=== PATIENT | male | born 1940 | race Caucasian/White ===

== ENCOUNTER → 2019-04-24 | Outpatient (CLI) | payer MEDICARE, OTHER ==
[2015-11-13 00:58] VITALS: BP 140/92
[~2019-04-24] MED LIST: AGGRENOX 25 MG-1 CER PO; AMBIEN10 MG PO; AMLOPIDINE PO; ATORVASTATIN CA20 MG PO; BYSTOLIC10 MG PO; CIALIS5 MG PO; COENZYME Q-10100 M1 PO; DIOVAN320 MG PO; GLUCOTROL XL2.5 MG PO; LEADER NATUR1000 MCG PO; NITROGLYCERIN0.4 M1 SL; OMEPRAZOLE20 MG PO; VIBRAMYCIN100 MG PO; ZOFRAN 8MG8 MG PO; ZYLOPRIM 300MG300 MG PO
== END ==
LOC: LAB 09:33 → RAD 09:33
DX: M25.571 Pain in right ankle and joints of right foot (principal); Z98.890 Other specified postprocedural states

== ENCOUNTER → 2019-05-09 | Outpatient (CLI) | payer MEDICARE, OTHER ==
[2015-11-13 00:58] VITALS: BP 140/92
[2019-05-09 15:52] LABS: EOS # 0.2 (0.04-0.40); EOS % 3.3 % (0.0-4.0); HEMATOCRIT 39.8 % (42.0-52.0); HEMOGLOBIN 13.2 g/dL (13.5-18.0); LYMPH# 1.2 (1.50-4.00); MEAN CELL VOLUME 102 fl (78-100); MEAN CORPUSCULAR HEMOGLOBIN 34 pg (27-31); MEAN CORPUSCULAR HGB CONC 33 g/dL (33-37); MEAN PLATELET VOLUME 9.3 fl (7.4-10.4); MONO # 0.6 (0.20-0.80); NEU # 4.8 (1.40-6.50); PLATELET COUNT 218 K/mm3 (130-400); RED BLOOD COUNT 3.91 M/mm3 (4.20-5.60); RED CELL DISTRIBUTION WIDTH 13.9 % (11.5-14.5); WHITE BLOOD COUNT 6.9 K/mm3 (4.8-10.8)
[2019-05-09 15:59] LABS: ALBUMIN 4.2 g/dL (3.4-4.8); SODIUM 141 mmol/L (136-145)
[2019-05-09 16:00] LABS: CALCIUM 9.8 mg/dL (8.3-10.5)
[2019-05-09 16:02] LABS: GLUCOSE 135 mg/dL (75-110); TOTAL PROTEIN 8.4 g/dL (6.2-8.1)
[2019-05-09 16:03] LABS: CARBON DIOXIDE 25 mmol/L (23-31)
[2019-05-09 16:04] LABS: TOTAL BILIRUBIN 0.5 mg/dL (0.2-1.2)
[2019-05-09 16:07] LABS: AST-SGOT 13 U/L (5-34)
[2019-05-09 16:09] LABS: ALT/SGPT < 6 U/L (0-55)
[2019-05-09 17:00] LABS: ERYTHROCYTE SEDIMENTATION RATE 15 mm/hr (0-20)
[2019-05-12 21:39] LABS: TESTOSTERONE 216 ng/dL (221-716)
== END ==
LOC: LAB 15:28
PROVIDERS: Internal Medicine
DX: I10 Essential (primary) hypertension (principal); E78.2 Mixed hyperlipidemia; R73.02 Impaired glucose tolerance (oral); G20 Parkinson's disease; N52.9 Male erectile dysfunction, unspecified; R20.2 Paresthesia of skin

== ENCOUNTER 2019-06-03 09:34 | Emergency (ER) | payer MEDICARE, OTHER ==
[~2019-06-03] VITALS: Ht 193 cm; Wt 94.9 kg
[~2019-06-03 09:34] MED LIST changes: -OMEPRAZOLE20 MG PO; +PRILOSEC 20MG20 MG PO
[2019-06-03 10:19] LABS: EOS # 0.3 (0.04-0.40); EOS % 3.9 % (0.0-4.0); HEMATOCRIT 38.6 % (42.0-52.0); HEMOGLOBIN 12.8 g/dL (13.5-18.0); MEAN CELL VOLUME 102 fl (78-100); MEAN CORPUSCULAR HEMOGLOBIN 34 pg (27-31); MEAN CORPUSCULAR HGB CONC 33 g/dL (33-37); MEAN PLATELET VOLUME 9.8 fl (7.4-10.4); MONO # 0.7 (0.20-0.80); NEU # 5.3 (1.40-6.50); PLATELET COUNT 188 K/mm3 (130-400); RED CELL DISTRIBUTION WIDTH 13.7 % (11.5-14.5); WHITE BLOOD COUNT 7.3 K/mm3 (4.8-10.8)
[2019-06-03] MEDS ORDERED: METOPROLOL SUCC50 M1 PO (10:26)
[2019-06-03] MEDS ORDERED: FLOMAX0.4 MG PO (10:26)
[2019-06-03] MEDS ORDERED: CARBIDOPA/LEVODOPA PO (10:27)
[2019-06-03] MEDS ORDERED: REMERON15 MG PO (10:29)
[2019-06-03 10:31] LABS: SODIUM 138 mmol/L (136-145)
[2019-06-03 10:32] LABS: ALBUMIN 3.9 g/dL (3.4-4.8)
[2019-06-03] MEDS ORDERED: VITAMIN B12 1541 TAB PO (10:32)
[2019-06-03 10:33] LABS: CALCIUM 9.4 mg/dL (8.3-10.5)
[2019-06-03 10:34] LABS: TOTAL PROTEIN 7.3 g/dL (6.2-8.1)
[2019-06-03 10:35] LABS: CARBON DIOXIDE 24 mmol/L (23-31); GLUCOSE 134 mg/dL (75-110)
[2019-06-03 10:36] LABS: TOTAL BILIRUBIN 0.8 mg/dL (0.2-1.2)
[2019-06-03 10:39] LABS: AST-SGOT 11 U/L (5-34)
[2019-06-03 10:43] LABS: ALT/SGPT < 6 U/L (0-55)
[2019-06-03 10:48] LABS: TROPONIN-I < 0.03 ng/mL (<0.030)
[2019-06-03 12:00] LABS: URINE APPEARANCE CLEAR; URINE BILIRUBIN NEGATIVE (NEGATIVE); URINE BLOOD NEGATIVE (NEGATIVE); URINE COLOR YELLOW; URINE GLUCOSE NEGATIVE (NEGATIVE); URINE KETONE NEGATIVE (NEGATIVE); URINE LEUKOCYTE ESTERASE NEGATIVE (NEGATIVE); URINE MUCUS PRESENT (NOT PRESENT); URINE NITRATE NEGATIVE (NEGATIVE); URINE PROTEIN(semi-quant) NEGATIVE (NEGATIVE); URINE UROBILINOGEN NORMAL (NORMAL); URINE WBC 0-1 /hpf (0-3)
[2019-06-03 13:11] VITALS: BP 142/79
== END 2019-06-03 13:12 | disposition home or self-care (01) ==
LOC: ED 09:34
PROVIDERS: Nurse Practitioner Primary Care
DX: R07.9 Chest pain, unspecified (principal); E11.22 Type 2 diabetes mellitus with diabetic chronic kidney disease; I12.9 Hypertensive chronic kidney disease with stage 1 through stage 4 chronic kidney disease, or unspecified chronic kidney disease; N18.9 Chronic kidney disease, unspecified; G20 Parkinson's disease; G30.9 Alzheimer's disease, unspecified; F02.80 Dementia in other diseases classified elsewhere, unspecified severity, without behavioral disturbance, psychotic disturbance, mood disturbance, and anxiety; Z79.84 Long term (current) use of oral hypoglycemic drugs; Z79.82 Long term (current) use of aspirin

== ENCOUNTER 2019-06-18 13:00 | Outpatient (RCR) | payer MEDICARE, OTHER ==
[~2019-06-18 13:00] MED LIST changes: +CARBIDOPA/LEVODOPA PO; +FLOMAX0.4 MG PO; +METOPROLOL SUCC50 M1 PO; +REMERON15 MG PO; +VITAMIN B12 1541 TAB PO
== END 2019-06-18 13:30 | disposition still patient (30) ==
LOC: PT 13:00
DX: G31.83 Neurocognitive disorder with Lewy bodies (principal); M25.571 Pain in right ankle and joints of right foot

== ENCOUNTER → 2019-06-30 | Outpatient (CLI) | payer MEDICARE, OTHER ==
[2019-06-03 13:11] VITALS: BP 142/79
== END ==
LOC: CARDREHAB 17:01
DX: G47.10 Hypersomnia, unspecified (principal); G47.33 Obstructive sleep apnea (adult) (pediatric)
CPT/HCPCS: G0399

== ENCOUNTER 2019-08-28 08:51 | Emergency (ER) | payer MEDICARE, OTHER ==
[~2019-08-28] VITALS: Wt 88.6 kg
[2019-08-28] MEDS ORDERED: AMLODIPINE BESYL5 MG PO (09:06)
[2019-08-28] MEDS ORDERED: QUETIAPINE FUMA25 M3 PO (09:06)
[2019-08-28] MEDS ORDERED: AMBIEN5 M1 PO (09:07)
[2019-08-28 09:18] LABS: EOS # 0.2 (0.04-0.40); EOS % 2.8 % (0.0-4.0); HEMATOCRIT 34.8 % (42.0-52.0); HEMOGLOBIN 11.3 g/dL (13.5-18.0); LYMPH# 1.1 (1.50-4.00); MEAN CELL VOLUME 104 fl (78-100); MEAN CORPUSCULAR HEMOGLOBIN 34 pg (27-31); MEAN CORPUSCULAR HGB CONC 33 g/dL (33-37); MEAN PLATELET VOLUME 8.8 fl (7.4-10.4); MONO # 0.6 (0.20-0.80); NEU # 5.3 (1.40-6.50); PLATELET COUNT 245 K/mm3 (130-400); RED BLOOD COUNT 3.36 M/mm3 (4.20-5.60); RED CELL DISTRIBUTION WIDTH 13.9 % (11.5-14.5); WHITE BLOOD COUNT 7.2 K/mm3 (4.8-10.8)
[2019-08-28 09:19] LABS: ALBUMIN 3.8 g/dL (3.4-4.8); POTASSIUM 3.8 mmol/L (3.5-5.1)
[2019-08-28 09:21] LABS: CALCIUM 8.8 mg/dL (8.3-10.5)
[2019-08-28 09:22] LABS: TOTAL PROTEIN 7.6 g/dL (6.2-8.1)
[2019-08-28 09:24] LABS: TOTAL BILIRUBIN 0.7 mg/dL (0.2-1.2)
[2019-08-28] MEDS ORDERED: LASIX20 M1 PO (10:09)
[2019-08-28 10:40] VITALS: BP 148/66
== END 2019-08-28 10:32 | disposition home or self-care (01) ==
LOC: ED 08:51
PROVIDERS: Nurse Practitioner Primary Care
DX: R60.0 Localized edema (principal); I11.0 Hypertensive heart disease with heart failure; I50.9 Heart failure, unspecified; G31.83 Neurocognitive disorder with Lewy bodies; F02.80 Dementia in other diseases classified elsewhere, unspecified severity, without behavioral disturbance, psychotic disturbance, mood disturbance, and anxiety; Z79.82 Long term (current) use of aspirin

== ENCOUNTER 2019-10-31 10:37 | Emergency (ER) | payer MEDICARE, OTHER ==
[~2019-10-31 10:37] MED LIST changes: +AMBIEN5 M1 PO; +AMLODIPINE BESYL5 MG PO; +LASIX20 M1 PO; +QUETIAPINE FUMA25 M3 PO
[2019-10-31 11:41] LABS: EOS # 0.1 (0.04-0.40); EOS % 1.2 % (0.0-4.0); HEMATOCRIT 39.2 % (42.0-52.0); HEMOGLOBIN 12.7 g/dL (13.5-18.0); LYMPH# 1.1 (1.50-4.00); MEAN CELL VOLUME 102 fl (78-100); MEAN CORPUSCULAR HEMOGLOBIN 33 pg (27-31); MEAN CORPUSCULAR HGB CONC 32 g/dL (33-37); MEAN PLATELET VOLUME 8.9 fl (7.4-10.4); MONO # 0.8 (0.20-0.80); NEU # 7.2 (1.40-6.50); PLATELET COUNT 212 K/mm3 (130-400); RED BLOOD COUNT 3.84 M/mm3 (4.20-5.60); RED CELL DISTRIBUTION WIDTH 13.1 % (11.5-14.5); WHITE BLOOD COUNT 9.2 K/mm3 (4.8-10.8)
[2019-10-31 11:47] LABS: ALBUMIN 3.8 g/dL (3.4-4.8); POTASSIUM 3.8 mmol/L (3.5-5.1); SODIUM 139 mmol/L (136-145)
[2019-10-31 11:48] LABS: CALCIUM 9.2 mg/dL (8.3-10.5)
[2019-10-31 11:49] LABS: GLUCOSE 173 mg/dL (75-110); TOTAL PROTEIN 7.6 g/dL (6.2-8.1)
[2019-10-31 11:50] LABS: CARBON DIOXIDE 27 mmol/L (23-31)
[2019-10-31 11:51] LABS: TOTAL BILIRUBIN 0.7 mg/dL (0.2-1.2)
[2019-10-31 11:55] LABS: AST-SGOT 14 U/L (5-34)
[2019-10-31 11:56] LABS: ALT/SGPT 7 U/L (0-55)
[2019-10-31 12:03] LABS: TROPONIN-I < 0.03 ng/mL (<0.030)
[2019-10-31] MEDS ORDERED: FLOMAX0.4 MG PO (12:57)
[2019-10-31] MEDS ORDERED: DONEPEZIL HCL10 MG PO (12:58)
[2019-10-31] MEDS ORDERED: ESCITALOPRAM5 MG PO (12:58)
[2019-10-31] MEDS ORDERED: ZOLPIDEM TART10 MG PO (12:59)
[2019-10-31] MEDS ORDERED: ATORVASTATIN CA40 MG PO (13:01)
[2019-10-31] MEDS ORDERED: ALLOPURINOL300 M1 PO (13:01)
[2019-10-31 13:32] LABS: URINE APPEARANCE CLEAR; URINE COLOR YELLOW; URINE GLUCOSE NEGATIVE (NEGATIVE); URINE KETONE NEGATIVE (NEGATIVE); URINE PROTEIN(semi-quant) 1+ mg/dL (NEGATIVE)
[2019-10-31 13:33] LABS: URINE BILIRUBIN NEGATIVE (NEGATIVE); URINE BLOOD NEGATIVE (NEGATIVE); URINE LEUKOCYTE ESTERASE NEGATIVE (NEGATIVE); URINE MUCUS PRESENT (NOT PRESENT); URINE NITRATE NEGATIVE (NEGATIVE); URINE UROBILINOGEN NORMAL (NORMAL)
[2019-10-31 14:20] VITALS: BP 167/74
== END 2019-10-31 14:42 | disposition home or self-care (01) ==
LOC: ED 10:37
PROVIDERS: Nurse Practitioner Family
DX: R41.82 Altered mental status, unspecified (principal); E11.9 Type 2 diabetes mellitus without complications; I10 Essential (primary) hypertension; G30.9 Alzheimer's disease, unspecified; F02.80 Dementia in other diseases classified elsewhere, unspecified severity, without behavioral disturbance, psychotic disturbance, mood disturbance, and anxiety; Z86.73 Personal history of transient ischemic attack (TIA), and cerebral infarction without residual deficits

== ENCOUNTER 2019-11-21 11:52 | Emergency (ER) | payer MEDICARE, OTHER ==
[~2019-11-21] VITALS: Ht 193 cm; Wt 89.5 kg
[~2019-11-21 11:52] MED LIST changes: +ALLOPURINOL300 M1 PO; +ATORVASTATIN CA40 MG PO; +DONEPEZIL HCL10 MG PO; +ESCITALOPRAM5 MG PO; +ZOLPIDEM TART10 MG PO
[2019-11-21 12:55] LABS: EOS # 0.2 (0.04-0.40); EOS % 2.1 % (0.0-4.0); HEMATOCRIT 39.5 % (42.0-52.0); HEMOGLOBIN 13.1 g/dL (13.5-18.0); LYMPH# 1.5 (1.50-4.00); MEAN CELL VOLUME 100 fl (78-100); MEAN CORPUSCULAR HEMOGLOBIN 33 pg (27-31); MEAN CORPUSCULAR HGB CONC 33 g/dL (33-37); MEAN PLATELET VOLUME 8.9 fl (7.4-10.4); MONO # 0.7 (0.20-0.80); NEU # 5.1 (1.40-6.50); PLATELET COUNT 205 K/mm3 (130-400); RED BLOOD COUNT 3.94 M/mm3 (4.20-5.60); WHITE BLOOD COUNT 7.5 K/mm3 (4.8-10.8)
[2019-11-21 13:07] LABS: ALBUMIN 3.9 g/dL (3.4-4.8)
[2019-11-21 13:08] LABS: POTASSIUM 4.2 mmol/L (3.5-5.1)
[2019-11-21 13:09] LABS: CALCIUM 9.2 mg/dL (8.3-10.5)
[2019-11-21 13:10] LABS: TOTAL PROTEIN 7.5 g/dL (6.2-8.1)
[2019-11-21 13:12] LABS: TOTAL BILIRUBIN 0.6 mg/dL (0.2-1.2)
[2019-11-21 13:22] LABS: TROPONIN-I 0.03 ng/mL (<0.030)
[2019-11-21 13:23] LABS: PH-URINE 8.5 (5.0 - 8.0); URINE APPEARANCE CLEAR; URINE BILIRUBIN NEGATIVE (NEGATIVE); URINE BLOOD NEGATIVE (NEGATIVE); URINE COLOR YELLOW; URINE GLUCOSE NEGATIVE (NEGATIVE); URINE KETONE NEGATIVE (NEGATIVE); URINE LEUKOCYTE ESTERASE NEGATIVE (NEGATIVE); URINE NITRATE NEGATIVE (NEGATIVE); URINE PROTEIN(semi-quant) NEGATIVE (NEGATIVE); URINE UROBILINOGEN NORMAL (NORMAL); URINE WBC 0-1 /hpf (0-3)
[2019-11-21] MEDS ORDERED: ESCITALOPRAM5 MG PO (13:58)
[2019-11-21] MEDS ORDERED: AGGRENOX 25 MG-1 CER PO (13:59)
[2019-11-21 15:03] VITALS: BP 131/90
== END 2019-11-21 15:00 | disposition home or self-care (01) ==
LOC: ED 11:52
PROVIDERS: Nurse Practitioner
DX: K21.9 Gastro-esophageal reflux disease without esophagitis (principal); K30 Functional dyspepsia; Z79.82 Long term (current) use of aspirin

== ENCOUNTER → 2019-12-12 | Outpatient (CLI) | payer MEDICARE, OTHER ==
[2019-11-21 15:03] VITALS: BP 131/90
== END ==
LOC: AMSURD 08:35
DX: I48.91 Unspecified atrial fibrillation (principal)

== ENCOUNTER 2020-02-01 05:48 | Emergency (ER) | payer MEDICARE, OTHER ==
[~2020-02-01] VITALS: Ht 200.7 cm; Wt 79.5 kg
[2020-02-01] MEDS ORDERED: REVATIO20 MG PO (06:00)
[2020-02-01] MEDS ORDERED: NORCO 325 MG-51 TA1 PO (09:37)
[2020-02-01 09:52] VITALS: BP 112/54
== END 2020-02-01 09:54 | disposition home or self-care (01) ==
LOC: ED 05:48
DX: M54.5 Low back pain (principal); I25.10 Atherosclerotic heart disease of native coronary artery without angina pectoris; I10 Essential (primary) hypertension; G20 Parkinson's disease; M10.9 Gout, unspecified; Z95.5 Presence of coronary angioplasty implant and graft; Z79.82 Long term (current) use of aspirin; W06.XXXA Fall from bed, initial encounter; Y92.009 Unspecified place in unspecified non-institutional (private) residence as the place of occurrence of the external cause

== ENCOUNTER 2020-02-09 10:48 | Emergency (ER) | payer MEDICARE, OTHER ==
[~2020-02-09] VITALS: Ht 203.2 cm; Wt 83.6 kg
[~2020-02-09 10:48] MED LIST changes: +NORCO 325 MG-51 TA1 PO; +REVATIO20 MG PO
[2020-02-09] MEDS ORDERED: TYLENOL EXTRA500 M2 PO (11:39)
[2020-02-09] MEDS ORDERED: MIRTAZAPINE15 M1 PO (11:40)
[2020-02-09 11:43] LABS: EOS # 0.2 (0.04-0.40); EOS % 2.9 % (0.0-4.0); HEMATOCRIT 35.4 % (42.0-52.0); HEMOGLOBIN 11.7 g/dL (13.5-18.0); LYMPH# 1.2 (1.50-4.00); MEAN CELL VOLUME 98 fl (78-100); MEAN CORPUSCULAR HEMOGLOBIN 33 pg (27-31); MEAN CORPUSCULAR HGB CONC 33 g/dL (33-37); MEAN PLATELET VOLUME 9.3 fl (7.4-10.4); MONO # 0.5 (0.20-0.80); NEU # 4.6 (1.40-6.50); PLATELET COUNT 193 K/mm3 (130-400); RED CELL DISTRIBUTION WIDTH 14.7 % (11.5-14.5); WHITE BLOOD COUNT 6.5 K/mm3 (4.8-10.8)
[2020-02-09 11:56] LABS: ALBUMIN 3.8 g/dL (3.4-4.8); POTASSIUM 3.7 mmol/L (3.5-5.1); SODIUM 139 mmol/L (136-145)
[2020-02-09 11:58] LABS: CALCIUM 8.8 mg/dL (8.3-10.5)
[2020-02-09 11:59] LABS: GLUCOSE 106 mg/dL (75-110); TOTAL PROTEIN 7.6 g/dL (6.2-8.1)
[2020-02-09 12:00] LABS: CARBON DIOXIDE 23 mmol/L (23-31)
[2020-02-09 12:01] LABS: TOTAL BILIRUBIN 0.8 mg/dL (0.2-1.2)
[2020-02-09 12:04] LABS: AST-SGOT 13 U/L (5-34)
[2020-02-09 12:18] LABS: ALT/SGPT < 6 U/L (0-55); TROPONIN-I < 0.03 ng/mL (<0.030)
[2020-02-09 14:35] VITALS: BP 132/87
== END 2020-02-09 14:47 | disposition home or self-care (01) ==
LOC: ED 10:48
PROVIDERS: Nurse Practitioner Primary Care
DX: K21.9 Gastro-esophageal reflux disease without esophagitis (principal); I25.10 Atherosclerotic heart disease of native coronary artery without angina pectoris; I25.2 Old myocardial infarction; I10 Essential (primary) hypertension; G20 Parkinson's disease; F02.80 Dementia in other diseases classified elsewhere, unspecified severity, without behavioral disturbance, psychotic disturbance, mood disturbance, and anxiety; Z79.82 Long term (current) use of aspirin; Z86.73 Personal history of transient ischemic attack (TIA), and cerebral infarction without residual deficits; Z95.5 Presence of coronary angioplasty implant and graft; Z95.818 Presence of other cardiac implants and grafts

== ENCOUNTER → 2020-03-22 | Outpatient (CLI) | payer MEDICARE, OTHER ==
[~2020-03-22] MED LIST changes: +MIRTAZAPINE15 M1 PO; +TYLENOL EXTRA500 M2 PO
[2020-03-22 11:32] LABS: EOS # 0.3 (0.04-0.40); EOS % 3.4 % (0.0-4.0); HEMATOCRIT 39.9 % (42.0-52.0); HEMOGLOBIN 13.1 g/dL (13.5-18.0); LYMPH# 1.4 (1.50-4.00); MEAN CELL VOLUME 102 fl (78-100); MEAN CORPUSCULAR HEMOGLOBIN 33 pg (27-31); MEAN CORPUSCULAR HGB CONC 33 g/dL (33-37); MONO # 0.6 (0.20-0.80); NEU # 6.3 (1.40-6.50); PLATELET COUNT 209 K/mm3 (130-400); RED BLOOD COUNT 3.92 M/mm3 (4.20-5.60); RED CELL DISTRIBUTION WIDTH 14.7 % (11.5-14.5); WHITE BLOOD COUNT 8.6 K/mm3 (4.8-10.8)
[2020-03-22 11:38] LABS: ALBUMIN 3.9 g/dL (3.4-4.8); POTASSIUM 4.2 mmol/L (3.5-5.1); SODIUM 142 mmol/L (136-145)
[2020-03-22 11:40] LABS: CALCIUM 9.2 mg/dL (8.3-10.5)
[2020-03-22 11:41] LABS: GLUCOSE 124 mg/dL (75-110); TOTAL PROTEIN 7.6 g/dL (6.2-8.1)
[2020-03-22 11:42] LABS: CARBON DIOXIDE 27 mmol/L (23-31)
[2020-03-22 11:43] LABS: TOTAL BILIRUBIN 0.5 mg/dL (0.2-1.2)
[2020-03-22 11:46] LABS: AST-SGOT 14 U/L (5-34)
[2020-03-22 11:52] LABS: ALT/SGPT < 6 U/L (0-55)
== END ==
LOC: LAB 11:16
PROVIDERS: Internal Medicine
DX: I10 Essential (primary) hypertension (principal); G20 Parkinson's disease; R73.02 Impaired glucose tolerance (oral)

== ENCOUNTER → 2020-04-16 | Outpatient (CLI) | payer MEDICARE, OTHER ==
[2020-04-16 09:54] LABS: HEMATOCRIT 38.2 % (42.0-52.0); HEMOGLOBIN 12.5 g/dL (13.5-18.0); MEAN PLATELET VOLUME 9.1 fl (7.4-10.4); RED BLOOD COUNT 3.78 M/mm3 (4.20-5.60); RED CELL DISTRIBUTION WIDTH 14.9 % (11.5-14.5); WHITE BLOOD COUNT 7.6 K/mm3 (4.8-10.8)
[2020-04-16 10:07] LABS: POTASSIUM 3.6 mmol/L (3.5-5.1); SODIUM 141 mmol/L (136-145)
[2020-04-16 10:08] LABS: CALCIUM 9.2 mg/dL (8.3-10.5); GLUCOSE 121 mg/dL (75-110)
[2020-04-16 10:10] LABS: CARBON DIOXIDE 27 mmol/L (23-31); D-DIMER 1.88 mg/L FEU (0.15-0.50)
[2020-04-16 10:29] LABS: TROPONIN-I < 0.03 ng/mL (<0.030)
== END ==
LOC: RAD 09:38
PROVIDERS: Internal Medicine Interventional Cardiology
DX: R07.89 Other chest pain (principal)

== ENCOUNTER 2020-04-21 13:45 | Outpatient (RCR) | payer MEDICARE, OTHER | END 2020-04-21 14:30 | disposition still patient (30) | LOC: PT 13:45 | DX: G20 Parkinson's disease (principal) ==

== ENCOUNTER → 2020-06-14 | Outpatient (CLI) | payer MEDICARE, OTHER ==
[2020-06-14 16:08] LABS: EOS # 0.2 (0.04-0.40); EOS % 3.2 % (0.0-4.0); HEMATOCRIT 37.1 % (42.0-52.0); HEMOGLOBIN 11.9 g/dL (13.5-18.0); LYMPH# 1.5 (1.50-4.00); MEAN CELL VOLUME 104 fl (78-100); MEAN CORPUSCULAR HEMOGLOBIN 33 pg (27-31); MEAN CORPUSCULAR HGB CONC 32 g/dL (33-37); MEAN PLATELET VOLUME 9.2 fl (7.4-10.4); MONO # 0.7 (0.20-0.80); NEU # 4.7 (1.40-6.50); PLATELET COUNT 197 K/mm3 (130-400); RED BLOOD COUNT 3.57 M/mm3 (4.20-5.60); RED CELL DISTRIBUTION WIDTH 14.3 % (11.5-14.5); WHITE BLOOD COUNT 7.2 K/mm3 (4.8-10.8)
[2020-06-14 16:16] LABS: POTASSIUM 3.7 mmol/L (3.5-5.1)
[2020-06-14 16:17] LABS: CALCIUM 8.8 mg/dL (8.3-10.5)
[2020-06-14 16:19] LABS: TOTAL PROTEIN 7.7 g/dL (6.2-8.1)
[2020-06-14 16:20] LABS: TOTAL BILIRUBIN 0.4 mg/dL (0.2-1.2)
== END ==
LOC: LAB 15:40
PROVIDERS: Internal Medicine
DX: E11.9 Type 2 diabetes mellitus without complications (principal); M10.9 Gout, unspecified

== ENCOUNTER 2020-06-15 10:00 | Outpatient (RCR) | payer MEDICARE, OTHER ==
[2020-07-26] MEDS ORDERED: LASIX20 M1 PO (14:12)
== END 2020-07-26 | disposition home or self-care (01) ==
LOC: PT
DX: G20 Parkinson's disease (principal)

== ENCOUNTER 2020-07-26 11:39 | Emergency (ER) | payer MEDICARE, OTHER ==
[~2020-07-26] VITALS: Wt 85.5 kg
[2020-07-26 12:32] LABS: EOS # 0.2 (0.04-0.40); EOS % 2.8 % (0.0-4.0); HEMATOCRIT 35.8 % (42.0-52.0); HEMOGLOBIN 11.4 g/dL (13.5-18.0); MEAN CELL VOLUME 103 fl (78-100); MEAN CORPUSCULAR HEMOGLOBIN 33 pg (27-31); MEAN CORPUSCULAR HGB CONC 32 g/dL (33-37); MONO # 0.7 (0.20-0.80); NEU # 4.8 (1.40-6.50); PLATELET COUNT 184 K/mm3 (130-400); RED BLOOD COUNT 3.48 M/mm3 (4.20-5.60); RED CELL DISTRIBUTION WIDTH 13.6 % (11.5-14.5); WHITE BLOOD COUNT 6.7 K/mm3 (4.8-10.8)
[2020-07-26 12:46] LABS: ALBUMIN 3.6 g/dL (3.4-4.8)
[2020-07-26 12:47] LABS: POTASSIUM 3.5 mmol/L (3.5-5.1)
[2020-07-26 12:48] LABS: CALCIUM 8.6 mg/dL (8.3-10.5)
[2020-07-26 12:49] LABS: TOTAL PROTEIN 7.1 g/dL (6.2-8.1)
[2020-07-26 12:51] LABS: TOTAL BILIRUBIN 0.5 mg/dL (0.2-1.2)
[2020-07-26 13:35] LABS: ERYTHROCYTE SEDIMENTATION RATE 17 mm/hr (0-20)
[2020-07-26] MEDS ORDERED: LASIX20 M1 PO (14:12)
[2020-07-26 18:33] VITALS: BP 133/79
== END 2020-07-26 15:26 | disposition home or self-care (01) ==
LOC: ED 11:39
PROVIDERS: Physician Assistant
DX: E86.0 Dehydration (principal); I95.9 Hypotension, unspecified; E78.5 Hyperlipidemia, unspecified; G20 Parkinson's disease; Z88.2 Allergy status to sulfonamides; Z79.82 Long term (current) use of aspirin
CPT/HCPCS: J7030

== ENCOUNTER 2020-12-09 14:26 | Emergency (ER) | payer MEDICARE, OTHER ==
[2020-12-09] MEDS ORDERED: AMLODIPINE BESYL5 MG PO (14:36)
[2020-12-09] MEDS ORDERED: AMANTADINE100 M1 PO (14:36)
[2020-12-09] MEDS ORDERED: MIRTAZAPINE30 MG PO (14:36)
[2020-12-09 15:24] LABS: BASO # 0.03 (0.02-0.10); EOS # 0.18 (0.04-0.40); EOS % 3.3 % (0.0-4.0); HEMATOCRIT 37.6 % (42.0-52.0); HEMOGLOBIN 12.4 g/dL (13.5-18.0); LYMPH# 0.76 (1.50-4.00); MEAN CELL VOLUME 101 fl (78-100); MEAN CORPUSCULAR HEMOGLOBIN 33 pg (27-31); MEAN CORPUSCULAR HGB CONC 33 g/dL (33-37); MEAN PLATELET VOLUME 9.5 fl (7.4-10.4); MONO # 0.45 (0.20-0.80); NEU # 3.96 (1.40-6.50); PLATELET COUNT 166 K/mm3 (130-400); RED BLOOD COUNT 3.71 M/mm3 (4.20-5.60); RED CELL DISTRIBUTION WIDTH 13.7 % (11.5-14.5); WHITE BLOOD COUNT 5.4 K/mm3 (4.8-10.8)
[2020-12-09 15:26] LABS: ALBUMIN 3.6 g/dL (3.4-4.8); POTASSIUM 4.3 mmol/L (3.5-5.1); SODIUM 140 mmol/L (136-145)
[2020-12-09 15:27] LABS: CALCIUM 8.7 mg/dL (8.3-10.5)
[2020-12-09 15:28] LABS: GLUCOSE 139 mg/dL (75-110)
[2020-12-09 15:29] LABS: TOTAL PROTEIN 7.2 g/dL (6.2-8.1)
[2020-12-09 15:30] LABS: CARBON DIOXIDE 24 mmol/L (23-31); TOTAL BILIRUBIN 0.6 mg/dL (0.2-1.2)
[2020-12-09 15:34] LABS: AST-SGOT 11 U/L (5-34)
[2020-12-09 15:41] LABS: ALT/SGPT < 6 U/L (0-55)
[2020-12-09 16:56] LABS: URINE COLOR YELLOW
[2020-12-09 16:57] LABS: URINE APPEARANCE HAZY; URINE BILIRUBIN 2+ (NEGATIVE); URINE BLOOD NEGATIVE (NEGATIVE); URINE GLUCOSE NEGATIVE (NEGATIVE); URINE KETONE NEGATIVE (NEGATIVE); URINE LEUKOCYTE ESTERASE TRACE (NEGATIVE); URINE NITRATE NEGATIVE (NEGATIVE); URINE PROTEIN(semi-quant) TRACE mg/dL (NEGATIVE); URINE UROBILINOGEN NORMAL (NORMAL)
[2020-12-09 16:58] LABS: URINE MUCUS PRESENT (NOT PRESENT)
[2020-12-09 18:18] VITALS: BP 103/90
== END 2020-12-09 18:18 | disposition home or self-care (01) ==
LOC: ED 14:26
PROVIDERS: Nurse Practitioner Family
DX: R10.31 Right lower quadrant pain (principal); M51.36 Other intervertebral disc degeneration, lumbar region; G20 Parkinson's disease; M79.606 Pain in leg, unspecified; E11.22 Type 2 diabetes mellitus with diabetic chronic kidney disease; N18.9 Chronic kidney disease, unspecified; G30.9 Alzheimer's disease, unspecified; E78.5 Hyperlipidemia, unspecified; Z95.0 Presence of cardiac pacemaker
CPT/HCPCS: J1885; J7030

== ENCOUNTER → 2020-12-13 | Outpatient (CLI) | payer MEDICARE, OTHER ==
[2020-12-09 18:18] VITALS: BP 103/90
[~2020-12-13] MED LIST changes: +AMANTADINE100 M1 PO; +ARICEPT10 M1 PO; +GOOD NEIGH1200 MG/15 PO; +MELATIN 3 MG-11 TAB PO; +MIDODRINE HCL2.5 MG PO; +MIRTAZAPINE30 MG PO; +REQUIP0.25 M1 PO; +SEROQUEL50 MG PO; +ZOLOFT25 M1 PO
[2020-12-13 17:09] LABS: URINE APPEARANCE HAZY; URINE BILIRUBIN NEGATIVE (NEGATIVE); URINE BLOOD TRACE (NEGATIVE); URINE COLOR DK YELLOW; URINE GLUCOSE NEGATIVE (NEGATIVE); URINE KETONE NEGATIVE (NEGATIVE); URINE LEUKOCYTE ESTERASE TRACE (NEGATIVE); URINE NITRATE NEGATIVE (NEGATIVE); URINE PROTEIN(semi-quant) TRACE mg/dL (NEGATIVE); URINE UROBILINOGEN NORMAL (NORMAL)
[2020-12-13 17:10] LABS: URINE MUCUS PRESENT (NOT PRESENT)
== END ==
LOC: LAB 16:26
PROVIDERS: Internal Medicine
DX: R10.84 Generalized abdominal pain (principal)

== ENCOUNTER 2021-02-16 21:30 | Emergency (ER) | payer MEDICARE, OTHER ==
[~2021-02-16 21:30] MED LIST changes: -ARICEPT10 M1 PO; -GOOD NEIGH1200 MG/15 PO; -MELATIN 3 MG-11 TAB PO; -MIDODRINE HCL2.5 MG PO; -REQUIP0.25 M1 PO; -SEROQUEL50 MG PO; -ZOLOFT25 M1 PO
[2021-02-16 21:34] VITALS: BP 124/79
[2021-02-16 22:33] LABS: BASO # 0.03 (0.02-0.10); EOS # 0.01 (0.04-0.40); EOS % 0.1 % (0.0-4.0); HEMATOCRIT 38.7 % (42.0-52.0); HEMOGLOBIN 12.7 g/dL (13.5-18.0); MEAN CELL VOLUME 101 fl (78-100); MEAN CORPUSCULAR HEMOGLOBIN 33 pg (27-31); MEAN CORPUSCULAR HGB CONC 33 g/dL (33-37); MEAN PLATELET VOLUME 9.9 fl (7.4-10.4); MONO # 0.73 (0.20-0.80); NEU # 7.11 (1.40-6.50); PLATELET COUNT 205 K/mm3 (130-400); RED BLOOD COUNT 3.83 M/mm3 (4.20-5.60); RED CELL DISTRIBUTION WIDTH 13.5 % (11.5-14.5); WHITE BLOOD COUNT 9.1 K/mm3 (4.8-10.8)
[2021-02-16 22:42] LABS: ALBUMIN 3.8 g/dL (3.4-4.8); POTASSIUM 3.9 mmol/L (3.5-5.1)
[2021-02-16 22:43] LABS: CALCIUM 9.7 mg/dL (8.3-10.5)
[2021-02-16 22:45] LABS: TOTAL PROTEIN 8.4 g/dL (6.2-8.1)
[2021-02-16 22:46] LABS: TOTAL BILIRUBIN 0.9 mg/dL (0.2-1.2)
[2021-02-16 23:38] LABS: URINE APPEARANCE HAZY; URINE COLOR AMBER; URINE GLUCOSE NEGATIVE (NEGATIVE); URINE PROTEIN(semi-quant) TRACE mg/dL (NEGATIVE)
[2021-02-16 23:39] LABS: URINE BILIRUBIN NEGATIVE (NEGATIVE); URINE BLOOD 50 ery/uL (NEGATIVE); URINE KETONE NEGATIVE (NEGATIVE); URINE LEUKOCYTE ESTERASE NEGATIVE (NEGATIVE); URINE MUCUS PRESENT (NOT PRESENT); URINE NITRATE NEGATIVE (NEGATIVE); URINE UROBILINOGEN NORMAL (NORMAL)
[2021-02-17] MEDS ORDERED: AMANTADINE100 M1 PO (01:14)
[2021-02-17] MEDS ORDERED: ARICEPT10 M1 PO (01:15)
[2021-02-17] MEDS ORDERED: MIDODRINE HCL2.5 MG PO (01:17)
[2021-02-17] MEDS ORDERED: MELATIN 3 MG-11 TAB PO (01:17)
[2021-02-17] MEDS ORDERED: GOOD NEIGH1200 MG/15 PO (01:19)
[2021-02-17] MEDS ORDERED: SEROQUEL50 MG PO (01:20)
[2021-02-17] MEDS ORDERED: REQUIP0.25 M1 PO (01:21)
[2021-02-17] MEDS ORDERED: ZOLOFT25 M1 PO (01:22)
== END 2021-02-17 00:04 | disposition other institution (70) ==
LOC: ED 21:30
PROVIDERS: Physician Assistant
DX: R41.82 Altered mental status, unspecified (principal); G20 Parkinson's disease; Z20.822 Contact with and (suspected) exposure to COVID-19; Z79.899 Other long term (current) drug therapy; Z95.818 Presence of other cardiac implants and grafts
CPT/HCPCS: J2543

== ENCOUNTER 2021-02-17 00:47 | Inpatient (IN) | payer MEDICARE, OTHER ==
[2021-02-17] VITALS (7 sets, daily range): BP systolic 136–168; BP diastolic 71–93
[~2021-02-17] VITALS: Ht 182.9 cm; Wt 71.6 kg
[2021-02-17] MEDS ORDERED: AMANTADINE100 M1 PO (01:14)
[2021-02-17] MEDS ORDERED: ARICEPT10 M1 PO (01:15)
[2021-02-17] MEDS ORDERED: MIDODRINE HCL2.5 MG PO (01:17)
[2021-02-17] MEDS ORDERED: MELATIN 3 MG-11 TAB PO (01:17)
[2021-02-17] MEDS ORDERED: GOOD NEIGH1200 MG/15 PO (01:19)
[2021-02-17] MEDS ORDERED: SEROQUEL50 MG PO (01:20)
[2021-02-17] MEDS ORDERED: REQUIP0.25 M1 PO (01:21)
[2021-02-17] MEDS ORDERED: ZOLOFT25 M1 PO (01:22)
--- NOTE | 2021-02-17 02:00 | NUR ---
Patient admitted from ED to room 204. From [facility]. Nursing staff reports patient is disoriented at baseline yet speaks clearly. Is unable answer questions appropriately. Upon admission, Alert and disoriented x3, non-verbal. VSS, on room air. Last BM 02/12/21. Admitted with SIRS, renal insuficiency, Parkinsons and dehydration. IV fluids infusing. Assisted x2 with HS cares. Resting in bed. Bed in lowest and locked position. Call light within reach.
--- NOTE | 2021-02-17 03:26 | NUR ---
IVF rate changed by provider to 500 ML/HR on current bag then next liter at 100 ML/HR.
--- NOTE | 2021-02-17 06:28 | NUR ---
No change in status. Remains non-verbal to staff. IVF infusing at 100 ML/HR. HR tachy 110's.
--- NOTE | 2021-02-17 07:00 | NUR ---
Report recieved from KOLBY Marion. Pt sleeping in bed. Tremors noted.
--- NOTE | 2021-02-17 07:07 | NUR ---
Report to Mackenzie MARTINEZ.
[2021-02-17 07:08] LABS: BASO # 0.01 (0.02-0.10); EOS # 0.01 (0.04-0.40); EOS % 0.1 % (0.0-4.0); HEMATOCRIT 36.4 % (42.0-52.0); HEMOGLOBIN 11.6 g/dL (13.5-18.0); MEAN CELL VOLUME 102 fl (78-100); MEAN CORPUSCULAR HEMOGLOBIN 33 pg (27-31); MEAN CORPUSCULAR HGB CONC 32 g/dL (33-37); MEAN PLATELET VOLUME 9.7 fl (7.4-10.4); MONO # 0.61 (0.20-0.80); NEU # 6.71 (1.40-6.50); PLATELET COUNT 181 K/mm3 (130-400); RED BLOOD COUNT 3.56 M/mm3 (4.20-5.60); RED CELL DISTRIBUTION WIDTH 13.6 % (11.5-14.5); WHITE BLOOD COUNT 8.6 K/mm3 (4.8-10.8)
[2021-02-17 07:14] LABS: POTASSIUM 3.8 mmol/L (3.5-5.1)
[2021-02-17 07:15] LABS: CALCIUM 8.9 mg/dL (8.3-10.5)
[2021-02-17 07:29] LABS: TROPONIN-I 0.04 ng/mL (<0.030)
--- NOTE | 2021-02-17 09:45 | NUR ---
Medication was crushed and put in applesauce pt will not swallow the medication, nurse and LEI MAKER tried to get the pt to respond but pt does not. Medication was taken out of the pts mouth, and mouth was swabbed out. Pt finally responded to a sternum rub and does open both eye. Pt tries to speak when asked to but can not seem to get any words out, then falls back asleep. Will continue to montior.
--- NOTE | 2021-02-17 11:30 | NUR ---
Talked with Dr. Dwaine Urrutia regarding pt. He agrees to hold all medications at this time, until the pt is more alert and responsive.
--- NOTE | 2021-02-17 13:30 | NUR ---
Spoke with pts son, Andrew to given him an update. He states that he is fine with our plan of care with fluids and keeping the pt comfortable for now and states that if he needs further work up that he is going with doing that as well. Will continue to keep him updated.
--- NOTE | 2021-02-17 14:04 | NUR ---
Pt repositioned in bed, IV to left wrist was taken out. 20G IV was placed to RT forearm earlier today. Pt responded to his name, but was unable to say anything at this time. Pt opened both eyes when I spoke his name for a second and then went back to sleep. Will continue to monitor.
--- NOTE | 2021-02-17 19:25 | NUR ---
Report received from Mackenzie MARTINEZ. Patient resting supine in bed. Drowsy, Opens eyes to verbal stimuli. Able to state his first name and trys to answer futher questions but unable to get words out. IVF infusing 1/2 NS at 100 ML/HR. Site to RFA patent. IV Zosyn started at this time to run at 25 ML/HR. Lungs CTA. TELE in place HR in 70's. Patient continues to have shakiness to upper ext. Mera cath patent to DD with urine now yellow in color. Staff in to turn and reposition Q 2 hours and PRN. Bed alarm on. Call light in reach.
--- NOTE | 2021-02-17 22:05 | NUR ---
Repositioned by MAP MOUNTER. Oral cares provided. Patient has poor oral condition. Teeth yellow with canker sores noted on inner lower mucosa. Old bruising (yellow/green) noted to L rib cage and bruising noted to R inner thigh. Pillow placed between legs. Trying to speak to staff and answer questions but words unintangible. Afebrile. Tylenol supp. 650 MG given for questionable pain.
[2021-02-18 02:15] VITALS: BP 165/74
--- NOTE | 2021-02-18 02:50 | NUR ---
IV Med johnston. IV site patent to RFA. Patient awake. States first name when asked but offers no further answers questions. Speech garbled. No signs of pain will not answer when asked. Samaria patent to DD. Clear yellow urine in bed.HR low 80's. Afebrile. Staff in to reposition with oral cares Q 2 hours. Bed alarm on. Call light in reach.
--- NOTE | 2021-02-18 05:21 | NUR ---
Repositioned by staff. Grimaces and moans out with repostioning. T. 99.6. Tylenol Supp 650 MG given per rectum at this time. Prior to moving in bed patient states "no" when asked if having pain. Has rested well.
[2021-02-18 05:58] VITALS: BP 172/84
--- NOTE | 2021-02-18 07:00 | NUR ---
Report recieved from KOLBY Marion. Pt sleeping in bed. Pt did open both eyes to his name, and then went back to sleep. Will continue to monitor.
--- NOTE | 2021-02-18 07:04 | NUR ---
Report to Mackenzie MARTINEZ.
[2021-02-18 08:25] LABS: BASO # 0.01 (0.02-0.10); EOS # 0.07 (0.04-0.40); HEMATOCRIT 35.7 % (42.0-52.0); HEMOGLOBIN 11.5 g/dL (13.5-18.0); LYMPH# 0.98 (1.50-4.00); MEAN CELL VOLUME 102 fl (78-100); MEAN CORPUSCULAR HEMOGLOBIN 33 pg (27-31); MEAN CORPUSCULAR HGB CONC 32 g/dL (33-37); MEAN PLATELET VOLUME 9.8 fl (7.4-10.4); MONO # 0.47 (0.20-0.80); NEU # 5.15 (1.40-6.50); PLATELET COUNT 163 K/mm3 (130-400); RED BLOOD COUNT 3.51 M/mm3 (4.20-5.60); RED CELL DISTRIBUTION WIDTH 13.5 % (11.5-14.5); WHITE BLOOD COUNT 6.7 K/mm3 (4.8-10.8)
[2021-02-18 08:33] LABS: ALBUMIN 3.2 g/dL (3.4-4.8); POTASSIUM 3.6 mmol/L (3.5-5.1)
[2021-02-18 08:34] LABS: CALCIUM 8.7 mg/dL (8.3-10.5)
[2021-02-18 08:35] LABS: TOTAL PROTEIN 7.2 g/dL (6.2-8.1)
[2021-02-18 08:37] LABS: TOTAL BILIRUBIN 1.2 mg/dL (0.2-1.2)
[2021-02-18 08:42] LABS: MAGNESIUM 1.83 mg/dL (1.60-2.60)
[2021-02-18 09:18] VITALS: BP 151/89
--- NOTE | 2021-02-18 10:38 | NUR ---
Received call from Glenis at [facility]. She reports that pt does not reside in their LTCF but that he was there for SNF stay. She reports that pt was supposed to be discharged and his last day of coverage was 02/17 due to lask of participation. Glenis reports that the plan was for Mr. Galloway to return to his home with his and 24H care. Glenis requested updates on pt's condition and plan of care when able. Per nursing, pt's son call earlier today and is on his way to [place] from out of town. Plan to discuss discharge plans with pt and family when able.
--- NOTE | 2021-02-18 13:00 | NUR ---
Pt responds to his name and was able to say he was in pain, and nods yes when asked if his left arm hurt. Nurse trialed pudding with the pt. Pt took a small bite and swallowed correctly however refused to take another bite stating that he did not want it. Pt asleep in bed when the nurse left room. Call light within reach, will continue to monitor.
[2021-02-18 13:55] VITALS: BP 161/102
[2021-02-18 17:23] VITALS: BP 161/100
--- NOTE | 2021-02-18 22:00 | NUR ---
This nurse and CHILD ATTENDANT provided dependent oral care. Patient unable to open mouth. Teeth brushed with soft toothbrush. Open sores, redness and yellow covering on gums, tongue and roof of mouth. Patient confirms pain in mouth.
[2021-02-18 22:02] VITALS: BP 162/89
--- NOTE | 2021-02-18 22:04 | NUR ---
Patient resting in bed. Alert and responding to questions. Patient able to answer "yes" or "no" to questions. No c/o pain or discomfort. Confirms he is not in pain by stating, "no" when asked. Bed in lowest and locked position. Call ligth within reach.
[2021-02-19] VITALS (7 sets, daily range): BP systolic 130–159; BP diastolic 74–100
--- NOTE | 2021-02-19 08:15 | NUR ---
Pt opens eyes to call of name otherwise lethargic. reponds to pain by withdraw and grimaces with repositioning. Remains NPO. IV of 1/2 NS at 100 mls/hr - iv site without redness or swelling. No meat blender to left hand and weak meat blender to right hand - pt does not follow commands to meat blender but overnight houseperson as reflex it appears. Tele shows RSR 90's-100's. PO meds on hold right now as ordered til pt awake and cognitive improved. Mera drains clear becki urine. BS active. Mouthcare completed with oral swab and mouthwash - poor dental health but pt allows tongue to be scrubbed (coated with yellow appearance and along gum line the same). Call light in reach and bed alarm on.
--- NOTE | 2021-02-19 10:21 | NUR ---
Morphine 2 mg SIVP given for discomfort after repositioning pt.
--- NOTE | 2021-02-19 11:45 | NUR ---
Pt opens eyes to call of name and appears to be more alert and bright eyed for short time. Family still here. Not agreeablet to mouth care at this time as clenches teeth. Continue to see small jerking movements at times. Tele continues. IV fluids continue to infuse without difficulty. Pt repositioned onto back for a time. left leg remains bent and pt continue to grimace with attempt to straighten or move it.
--- NOTE | 2021-02-19 12:37 | NUR ---
Dr. Christy in to visit with sister and son. Andrew, other pt's son, is DOPA. He and his mom (pt's ) are out of town at this time. Family report that also has dementia but does live at home.
--- NOTE | 2021-02-19 12:43 | NUR ---
Spoke w/ [facility], Devora, who had called for an update. Devora reported that pt fell on sunday and that she noticed that pt has become more contractured lately. States she thinks the last time the pt ate was around sunday. Unsure of last BM there. She also mentioned that pt does not allow mouthcare there at the home very often but they attempt. Dr. Christy discussed getting an MRI with the family if that is something they wanted to do.
--- NOTE | 2021-02-19 13:00 | NUR ---
Son and pt's sister leave at this time. Sister tearful and states she is okay. Denies any further questions.
--- NOTE | 2021-02-19 14:03 | NUR ---
Report to KOLBY French.
[2021-02-19 14:37] LABS: BASO # 0.03 (0.02-0.10); EOS # 0.09 (0.04-0.40); EOS % 1.2 % (0.0-4.0); HEMATOCRIT 35.2 % (42.0-52.0); HEMOGLOBIN 11.5 g/dL (13.5-18.0); MEAN CELL VOLUME 102 fl (78-100); MEAN CORPUSCULAR HEMOGLOBIN 33 pg (27-31); MEAN CORPUSCULAR HGB CONC 33 g/dL (33-37); MEAN PLATELET VOLUME 9.6 fl (7.4-10.4); MONO # 0.46 (0.20-0.80); NEU # 5.49 (1.40-6.50); PLATELET COUNT 140 K/mm3 (130-400); RED BLOOD COUNT 3.45 M/mm3 (4.20-5.60); RED CELL DISTRIBUTION WIDTH 13.3 % (11.5-14.5); WHITE BLOOD COUNT 7.3 K/mm3 (4.8-10.8)
[2021-02-19 14:46] LABS: POTASSIUM 3.7 mmol/L (3.5-5.1)
[2021-02-19 14:47] LABS: CALCIUM 8.3 mg/dL (8.3-10.5)
--- NOTE | 2021-02-19 14:57 | NUR ---
Report received from JUAN Saldivar. Pt in bed and has been repositioned. He makes incomprehensible verbal sounds when responding. Moaned when repositioned. No purposeful movements noted, but he does move R arm and R hand; minimal movement to L hand. Opens eyes very slowly on request. LLE fairly contractured, with min. movement with pressure to toenail bed. NPO due to lethargy. Mera to Dep. drainage with clear yellow urine. Per new orders: IV 0.45 NS solution changed to D5 1/4 NS with added MVI at 100 ml/hr to healthy site at R lower arm. Thiamine 50 mg IV administered over 5 min. Administered Cyanocobalamine 1000 mg IM in R ventr-glut. Pt josé luis. well. Will check on patient on rounds. Nena Cabrales LPN
--- NOTE | 2021-02-19 19:49 | NUR ---
Report given to oncoming shift nurseAlana. Nena Cabrales, BUILDING MAINTENANCE REPAIRER
--- NOTE | 2021-02-19 21:48 | NUR ---
This nurse and SUPERVISOR ENGRAVING provided bed bath, lotion and clean linens. Air overlay mattress put on bed. Patient positioned with pillows. Alert and answers "yes" to questions. No c/o pain or discomfort at this time. HS cares provided. Bed in lowest and locked position. Call light within reach.
[2021-02-20 02:10] VITALS: BP 156/82
[2021-02-20 06:01] VITALS: BP 156/74
--- NOTE | 2021-02-20 07:15 | NUR ---
Report received from Sonya MARTINEZ
[2021-02-20 09:29] VITALS: BP 157/87
--- NOTE | 2021-02-20 13:17 | NUR ---
Report given to Gillian JARRETT
[2021-02-20 13:51] VITALS: BP 150/76
--- NOTE | 2021-02-20 17:13 | NUR ---
Pt somewhat alert today. He says his name with clear but whispering and low-qualiy speech and after a few seconds to process the question. It is mainly incomprehensible sounds, but it does seem he is trying to state correctly. He also has tried to respond to answering when asked the name of his , but unable to comprehend his attempt. His face remains expressionless, but he does seem more responsive overall today compared to yesterday. IV D5 1/2 NS with KCL 20 mEq @ 100 ml/hr to healthy site R arm. Denies discomfort when asked. Moves the R upper and R lower arm in bed and has weak R hand type photography supervisor. L upper and L lower remain weak and minimal movement with response to pressing nailbeds. Still somewhat stiff L elbow and L knee. Mera to DD with clear med. yellow urine. Cont. to reposition q 2 hrs. Providing skin care and oral care. Pt's was called on video chat through two female friends of the family who came to visit this afternoon. Simon recognized his & daughter (Elsy) on the video call and tried to respond verbally, but very slow responding. Remains NPO due to generalized decreased strength and risk for aspiration.
[2021-02-20 17:53] VITALS: BP 160/81
[2021-02-20 21:57] VITALS: BP 161/81
--- NOTE | 2021-02-20 23:40 | NUR ---
Resting in bed, eyes closed and even respirations. Bed alarm set.
--- NOTE | 2021-02-21 | NUR ---
Report received from Dwain MARTINEZ and care assumed at this time. Rests quietly in bed. IVF infusing D5 1/2 NS with 20 KCL at 100 ML/HR.
--- NOTE | 2021-02-21 00:05 | NUR ---
Report given to Sanam Stiles RN
[2021-02-21 02:05] VITALS: BP 155/81
--- NOTE | 2021-02-21 02:58 | NUR ---
IV outdated. This nurse attempts unsuccessful x2. New INT # 20 gauge inserted in L wrist by RN. IVF resumed at 100 ML/HR.
[2021-02-21 05:52] VITALS: BP 140/82
--- NOTE | 2021-02-21 06:27 | NUR ---
Dr. Urrutia in to round on patient.
--- NOTE | 2021-02-21 07:19 | NUR ---
Report to Moni MARTINEZ.
[2021-02-21 09:22] VITALS: BP 143/77
--- NOTE | 2021-02-21 09:36 | NUR ---
Spoke with JUAN Tipton at [facility]. She confirmed that pt was in a SNF stay at [facility] when he was sent to the hospital. He was about to be discharged home but Saeed voice concern about the safety of that plan. Unknown plan of care at this time. If pt and family are interested in LTC or hospice, both could be done at [facility]. Will continue to follow for discharge needs.
[2021-02-21 10:49] LABS: POTASSIUM 3.8 mmol/L (3.5-5.1)
[2021-02-21 14:20] VITALS: BP 147/84
[2021-02-21 17:05] VITALS: BP 165/95
--- NOTE | 2021-02-21 19:56 | NUR ---
Report received from Moni Gold RN. Patient lying in bed. Eyes opens. Answer first name when asked but hard to understand, will lift right arm and hold briefly but no other movements noted. IVF infusing D5 1/2 NS with 20 KCL at 100 ML/HR. Site patent to L wrist. TELE in place with HR paced in 70's. Mera to DD with yellow urine in bag. WHEELCHAIR VAN DRIVER in at shift change to perform good oral cares. Repositioned Q 2 hours by staff. Heels floated. No signs of pain or distress. Bed alarm on. Call light in reach.
[2021-02-21 21:42] VITALS: BP 155/85
--- NOTE | 2021-02-22 01:10 | NUR ---
New bag of IVF hung at this time. Patient resting quietly with no signs of distress. Eyes open but does not off any vebalization at this time. Staff continues to reposition with oral cares Q 2 hours and PRN.
[2021-02-22 01:45] VITALS: BP 161/86
[2021-02-22 05:55] VITALS: BP 166/81
--- NOTE | 2021-02-22 06:56 | NUR ---
Report to Sonya MARTINEZ.
[2021-02-22 10:05] VITALS: BP 142/94
--- NOTE | 2021-02-22 10:25 | NUR ---
Patient resting in bed. Oral care given. Patient has eyes open and responding to questions. Chewed and swallowed x3 pieces of ice chips. No grimise or exhibiting pain. FLACC a zero at this time. Bed in lowest and locked position. Call light within reach.
[2021-02-22 13:58] VITALS: BP 149/86
[2021-02-22 17:45] VITALS: BP 149/81
--- NOTE | 2021-02-22 19:34 | NUR ---
Report received from Sonya MARTINEZ. Patient resting in bed with eyes open. IVF infusing D5 1/2 NS with 20 KCL at 100 ML/HR. Site to L wrist patent. Patient trying to answer questions but speech is quiet and unintangible. Obeys some commands as raising R arm and able to hold. Does not move L arm or squeeze with L hand. Shakes head "no" when asked if having pain. Assessment completed. Sister calls and states she will be in to visit patient tomorrow at 10 AM and that is flying in from Son's out of state tomorrow. This was relayed to patient. Bed alarm on. Call light in reach.
[2021-02-22 21:46] VITALS: BP 151/83
--- NOTE | 2021-02-22 21:46 | NUR ---
Repostioned with good oral cares provided. Grimaces a little with turning but settle right down and shows no signs of pain. New bag of IVF hung at this time. IV site patent to L sheryl.
[2021-02-23 02:00] VITALS: BP 165/85
[2021-02-23 06:23] VITALS: BP 166/88
--- NOTE | 2021-02-23 06:57 | NUR ---
Report to Suzette MARTINEZ.
--- NOTE | 2021-02-23 07:48 | NUR ---
Report received from KOLBY Marion. Pt resting in bed. Wakes to his name. Able to follow some commands but unable to verbalize anything. Unsure how much pt understands. D5 1/2NS + 20K infusing ot L. wrist @ 100. Mera dependent and draining clear, yellow urine. Pt grimaced with movement of legs durring assessment. Pt remains NPO at this time. Call light in reach.
--- NOTE | 2021-02-23 09:25 | NUR ---
Spoke with [facility] in [place]. Saeed stated that they would not be able to take Simon today it would likely be tomorrow. They are contracted with [facility] hospice services. The family can pick one and they will see if they have a contract with them.
[2021-02-23 09:42] VITALS: BP 157/89
--- NOTE | 2021-02-23 12:10 | NUR ---
Pt resting in bed. Pt opens his eyes to his name. Pt does not respond verbally. Pt able to squeeze hands when asked but unable to follow all commands. Pt repositioned by CNAs. Pt appeared to be in less pain with this repositioning after tylenol suppository. Pt's sister, Mirella, at bedside. Encouraged her to contact this nurse if pt appeared to be uncomfortable or if they razia any other questions or concerns.
--- NOTE | 2021-02-23 13:40 | NUR ---
Spoke with Son Andrew. He is wanting his dad to return to [facility] tomorrow for Hospice Care. He states that [place] has set up hospice care and starting the contract with them. He will call this social work case manager to notify of their choice. Direct phone number given to Andrew.
[2021-02-23 14:17] VITALS: BP 163/96
--- NOTE | 2021-02-23 14:30 | NUR ---
Spoke with Pal at [facility]. She is wanting clinicals. She was advised pt would be going to [facility] on Sunday. they would like last progress notes. Faxed to [phone] on 02/23/21 Called [facility] in [place], [place]. placed on hold. Will call back later
[2021-02-23 18:12] VITALS: BP 143/68
--- NOTE | 2021-02-23 21:00 | NUR ---
Repor received from Aiyana MARTINEZ. Patient resting in bed with IVF infusing D5 1/2 NS with 20 KCL at 100 ML/HR. Site patent to R wrist. Opens eyes when spoke too. No verbal communication attempted. Continues to be NPO. TELE in place. Paced rhythm at 70. Repositioned and oral cares provided. Mera patent to DD. Bed alarm on. Call light in reach.
[2021-02-23 22:00] VITALS: BP 144/80
[2021-02-24 06:06] VITALS: BP 150/103
--- NOTE | 2021-02-24 07:13 | NUR ---
Report to Bridgette MARTINEZ.
--- NOTE | 2021-02-24 07:23 | NUR ---
REPORT RECEIVED FROM MENG JARRETT.
--- NOTE | 2021-02-24 08:12 | NUR ---
SUPINE IN BED WITH EYES OPEN. MOUTH BREATHING WITH MOUTH WIDE OPEN. RESP EVEN AND UNLABORED. PILLOWS TO SUPPORT POSITION OF COMFORT. D5 1/2 NS WITH 20MEQ KCL INFUSING AT 100ML/HR TO INTACT IV SITE AT LT WRIST. SHAKES HEAD 'NO' WHEN ASKED IF HAVING PAIN. FOLLOWS SIMPLE COMMANDS. HAND MECHANICAL ENGINEERING TEACHER EQUAL AND WEAK. WANG CATH IN PLACE. BED ALARM IN PLACE.
[2021-02-24 09:34] VITALS: BP 145/81
--- NOTE | 2021-02-24 10:48 | NUR ---
Spoke with Father Jamie at [facility]. Father Jamie will be here this afternoon.
--- NOTE | 2021-02-24 10:56 | NUR ---
Spoke with Pal at [facility]. Explained that Simon appeared to be transitioning. VSS at this time. Pt not able to speak. Opens eye to his Roberta. This cm does not feel at this time home would be an option for him. Unsure if family will be able to care for his needs at home. Suggested inpt hospice would potentially be a better option. Unsure if Simon will make it to [place] then to home. Pal will call daughter in law and son who is the durable power of ip technology transactions attorney to explain and will call back to advise us on his decision.
--- NOTE | 2021-02-24 12:57 | NUR ---
REPOSITION PER COMFORT. DENIES PAIN. FACE FLUSHED.
--- NOTE | 2021-02-24 17:10 | NUR ---
Spoke with the social media marketing analyst at [facility]. Advised that Simon was not improving and that he looked like he was transitioning. Advised we would keep him here as long a needed until family could make up their mind.
[2021-02-24 17:12] VITALS: BP 127/68
--- NOTE | 2021-02-24 18:49 | NUR ---
REPORT PROVIDE TO MENG JARRETT.
--- NOTE | 2021-02-24 21:12 | NUR ---
Report received from Bridgette MARTINEZ. Family in at shift change and now gone. Patient opens eyes with verbal stimuli and follows this nurse with eyes. No verbal response. IV Mso4 given SIVP at this time. prior to repositioning. Has some moaning and grimacing with turns. Assessment completed. Skin warm and dry with not mottling noted. Magnet applied to pacemaker site per order and AV pacemaker spikes noted on TELE when applied. Magnet removed and no pacer spikes noted. Provider notified and magnet left off at this time. HR 77.
--- NOTE | 2021-02-25 04:05 | NUR ---
Patient has been resting quietly with no signs of pain or distress. HR 70's. No change in status.
--- NOTE | 2021-02-25 05:07 | NUR ---
Has been resting quietly. Has some grimacing and moaning out with turns. Morphine 2 MG given SIVP.
[2021-02-25 05:49] VITALS: BP 136/81
--- NOTE | 2021-02-25 06:54 | NUR ---
Report to Sonya MARTINEZ.
--- NOTE | 2021-02-25 08:27 | NUR ---
Patient resting in bed. Responds to name by opening eyes. Unable to follow commands. Disoriented. Mera intake with clear, yellow dependent drainage. Skin hot, clamy and pale. Periods of apnea lasting 30-40 sec. No signs of pain or discomfort. FLACC score zero. Bed in lowest and locked position.
--- NOTE | 2021-02-25 12:28 | NUR ---
Spoke with Andrew Montes's son. He will be here in one hour or so.
--- NOTE | 2021-02-25 14:25 | NUR ---
Spoke with Charito Luevano regarding a one time agreement with [facility] for pt. Spoke with Pal at [facility] and asked her to send the agreement to Sheng Russo and Charito Vallejo. Pt moved to room 308 for larger room size. [facility] nurse will be here to have family sign the contract for hospice.
[2021-02-25 17:26] VITALS: BP 108/68
--- NOTE | 2021-02-25 18:09 | NUR ---
Patient transfered to room 308 under [facility] care. All care should be provided by hospice. Contact number is [phone]. Oral medications are in lock box with diego in [place]. A paper copy in chart of standing orders. To provide comfort cares.
--- NOTE | 2021-02-25 19:03 | NUR ---
Report given to JUAN Castaneda
--- NOTE | 2021-02-25 20:00 | NUR ---
Report received from Di Bolivar RN. Pt. is supine in his bed with HOB up 45 degrees. Family is at bedside. Pt.'s respirations are even and unlabored. Oral care is provided. Room orientation and plan of care reviewed with family and Pt.
--- NOTE | 2021-02-25 21:55 | NUR ---
Pt. repositioned with use of pillows. Pt. is resting with eyes closed with regular, unlabored respirations. Family has left for the evening.
--- NOTE | 2021-02-26 03:47 | NUR ---
Pt. repositioned. Pt. with a small smearing of stool. Pericare provided. Pt. has a discoloration to right inner thigh. Pt. continues to have cap refill <3secs. Oral care provided. Pt. continues to have urine output. Urine is dark becki.
--- NOTE | 2021-02-26 06:56 | NUR ---
Pt. had 250 of becki urine out in his ruby. Pt. is resting in his bed with eyes closed, regular respirations. Report was given to Di Bolivar RN.
--- NOTE | 2021-02-26 08:26 | NUR ---
Patient resting comfortably in bed. Given PRN medications for comfort. Music playing. Patient's family at bedside. No concerns from family. Bed in lowest and locked position. Call light wtihin reach. Cont. comfort/hospice care.
--- NOTE | 2021-02-26 15:52 | NUR ---
Patient's family at bedside. Patient resting comfortably at this time. No requests for PRN medication. Refuses need for turn or cares. Patient does not appear to be aggitated or in discomfort.
--- NOTE | 2021-02-26 18:13 | NUR ---
Patient resting quietly in bed after PRN given. Family to return this evening after dinner. Bed in lowest and locked position.
--- NOTE | 2021-02-26 20:00 | NUR ---
Report received from Di Bolivar RN. Pt. is in bed, positioned on his right side. Pt.'s respirations are unlabored. Oral care is provided. Family is at bedside. Emotional support provided to family. Family reports strength in their colten.
--- NOTE | 2021-02-26 23:23 | NUR ---
Pt. administered 0.5 ml. Morphine, PRN. Pt. had facial grimacing with oral care and repositioning.
--- NOTE | 2021-02-27 01:55 | NUR ---
Pt. is observed moaning and showing signs of restlessness. Oral care provided and Pt.'s pillows utilized to reposition Pt. Calming music playing. Pt. administered 1ml of Morphone, 20mg/1ml, and 1ml of Lorazepam, 2 mg/1ml, sublingually.
--- NOTE | 2021-02-27 05:35 | NUR ---
Pt. is on his right side, with open mouth breathing. Oral care provided and Morphine, 20 mg/1 ml, 1.0 ml, administered, sublingually.
--- NOTE | 2021-02-27 05:52 | NUR ---
Pt. has 400 cc dark, becki urine emptied from ruby catheter.
--- NOTE | 2021-02-27 06:58 | NUR ---
Report given to Di Bolivar RN.
--- NOTE | 2021-02-27 09:02 | NUR ---
Given PRN medication, as ordered for agitation. Patient now resting quietly in bed. Respirations, short, shallow with periods of apnea. Does not respond to painful stimuli. Oral care given. Patient positioned comfortably in bed. Bed in lowest and locked position.
--- NOTE | 2021-02-27 20:00 | NUR ---
Report is received from Di Bolivar RN. Pt. is in bed, supine with HOB > 45 degrees. Pt. is open mouth breathing. Respirations are even and unlabored. Oral care is provided and Pt. is assisted in positioning with use of pillows. Family is at bedside. Calming music is quietly played. Emotional support is given to family and questions answered regarding end of life.
--- NOTE | 2021-02-28 02:21 | NUR ---
Morphine 1 ml, 20mg/1ml, administered sublingually to assist in Pt.'s respiratory effort. Pt. had a large, rust colored fluid release from his bowel. Pt. was given a bed bath with a complete linen and gown change. Oral care provided and Pt. was repositioned. Pt.'s back is minimally discolored and Pt. has a reddened area on his coxxcy, both are non blanchable. Pt.'s bilateral lower extremities are pale with a cap refill of >3 sec. Soft calming music is playing and Pt.'s extremities are positioned on pillows for Pt.'s comfort.
--- NOTE | 2021-02-28 16:02 | NUR ---
Per one time contract with [facility], pt transferred to hospice level of care on 02/25/21 @ 9114. Please see new Account [id number].
== END 2021-02-25 17:47 | disposition hospice, inpatient (51) | DRG 64 ==
LOC: MED/SURG 00:47
PROVIDERS: Family Medicine; Internal Medicine; ADMIT Physician Assistant
DX: I63.9 Cerebral infarction, unspecified (principal); G93.41 Metabolic encephalopathy; R65.10 Systemic inflammatory response syndrome (SIRS) of non-infectious origin without acute organ dysfunction; E86.0 Dehydration; G20 Parkinson's disease; I25.10 Atherosclerotic heart disease of native coronary artery without angina pectoris; I12.9 Hypertensive chronic kidney disease with stage 1 through stage 4 chronic kidney disease, or unspecified chronic kidney disease; R13.10 Dysphagia, unspecified; N18.9 Chronic kidney disease, unspecified; E11.22 Type 2 diabetes mellitus with diabetic chronic kidney disease; Z66 Do not resuscitate; G47.33 Obstructive sleep apnea (adult) (pediatric); N40.0 Benign prostatic hyperplasia without lower urinary tract symptoms; K05.10 Chronic gingivitis, plaque induced; G30.9 Alzheimer's disease, unspecified; F02.80 Dementia in other diseases classified elsewhere, unspecified severity, without behavioral disturbance, psychotic disturbance, mood disturbance, and anxiety; M10.9 Gout, unspecified; E78.5 Hyperlipidemia, unspecified; Z95.5 Presence of coronary angioplasty implant and graft; Z95.818 Presence of other cardiac implants and grafts; Z79.82 Long term (current) use of aspirin; Z88.8 Allergy status to other drugs, medicaments and biological substances
CPT/HCPCS: A9270-GY; C9113; J1650; J2060; J2270; J2543; J3411; J3420; J3480; J7030

== ENCOUNTER 2021-02-25 17:48 | Inpatient (IN) | payer OTHER ==
[~2021-02-25] VITALS: Ht 185.4 cm; Wt 71.6 kg
[~2021-02-25 17:48] MED LIST changes: +ARICEPT10 M1 PO; +GOOD NEIGH1200 MG/15 PO; +MELATIN 3 MG-11 TAB PO; +MIDODRINE HCL2.5 MG PO; +REQUIP0.25 M1 PO; +SEROQUEL50 MG PO; +ZOLOFT25 M1 PO
[2021-02-28 14:00] VITALS: BP 133/85
[2021-02-28 17:57] VITALS: BP 133/85
[2021-03-01 06:24] VITALS: BP 117/80
[2021-03-01 17:05] VITALS: BP 114/76
[2021-03-02 05:27] VITALS: BP 92/60
[2021-03-02 16:07] VITALS: BP 62/44
== END 2021-03-03 08:08 | disposition expired | DRG 951 ==
LOC: MED/SURG 17:48
PROVIDERS: ADMIT Family Medicine
DX: Z51.5 Encounter for palliative care (principal); I63.9 Cerebral infarction, unspecified; G20 Parkinson's disease; I25.10 Atherosclerotic heart disease of native coronary artery without angina pectoris; N40.0 Benign prostatic hyperplasia without lower urinary tract symptoms; N18.9 Chronic kidney disease, unspecified; G47.33 Obstructive sleep apnea (adult) (pediatric); I12.9 Hypertensive chronic kidney disease with stage 1 through stage 4 chronic kidney disease, or unspecified chronic kidney disease; E11.9 Type 2 diabetes mellitus without complications; Z66 Do not resuscitate; R13.10 Dysphagia, unspecified; E86.0 Dehydration; M10.9 Gout, unspecified; E78.5 Hyperlipidemia, unspecified; Z95.5 Presence of coronary angioplasty implant and graft; Z95.818 Presence of other cardiac implants and grafts; Z79.82 Long term (current) use of aspirin; Z88.8 Allergy status to other drugs, medicaments and biological substances